=== PATIENT | female | born 1955 | race African-American/Black ===

== ENCOUNTER → 2017-02-15 | Outpatient (CLI) | payer BC ==
[2015-06-28 17:21] VITALS: BP 187/86
[~2017-02-15] MED LIST: LEVO100T; LISINOPRIL; NORVASC
--- NOTE | 2017-02-15 16:47 | RAD ---
DATE: 02/15/2017 EXAM: DIGITAL SCREEN BILAT W/CAD HISTORY: Asymptomatic screening mammogram. COMPARISON: Prior mammograms from 12/15/2015, 01/29/2014 and 09/19/2013 This study was interpreted with the benefit of Computerized Aided Detection (CAD). The breast parenchyma shows scattered fibroglandular densities. Breast parenchyma level B. FINDINGS: Bilateral CC and MLO views were performed. No suspicious microcalcifications, masses or areas of architectural distortion. Findings are stable from the prior mammogram. IMPRESSION: Negative bilateral mammogram BI-RADS CATEGORY: 1 NEGATIVE RECOMMENDED FOLLOW-UP: 12M 12 MONTH FOLLOW-UP PQRS compliance statement: Patient information was entered into a reminder system with a target due date 02/15/2018 for the next mammogram. Mammography is a sensitive method for finding small breast cancers, but it does not detect them all and is not a substitute for careful clinical examination. A negative mammogram does not negate a clinically suspicious finding and should not result in delay in biopsying a clinically suspicious abnormality. "Our facility is accredited by the [employer] Mammography [employer]."
== END | disposition home or self-care (01) ==
LOC: MAMMO 10:03
PROVIDERS: ATTEND Internal Medicine
DX: Z12.31 Encounter for screening mammogram for malignant neoplasm of breast (principal)
CPT/HCPCS: G0202; 77067

== ENCOUNTER → 2020-11-03 | Outpatient (CLI) | payer MEDICARE ==
[2015-06-28 17:21] VITALS: BP 187/86
[~2020-11-03] MED LIST changes: +LEVO-101; -LEVO100T; +REGADENOSON 0.4 MG/5 ML DISP.SYRIN. IV ONE
--- NOTE | 2020-11-03 12:47 | CARD ---
MR#: [id number] Date of Study: 11/03/2020 Ordering Physician: REED LATIF, Referring Physician: REED LATIF, Tech: Sue Baltazar [facility] APPROVED REPORT EXAM: Two-dimensional and M-mode echocardiogram with Doppler and color Doppler. Other Information Quality : Good INDICATION Murmur 2D DIMENSIONS RVDd2.8 (2.9-3.5cm)Left Atrium(2D)3.7 (1.6-4.0cm) IVSd1.3 (0.7-1.1cm)Aortic Root(2D)2.4 (2.0-3.7cm) LVDd4.7 (3.9-5.9cm)LVOT Diameter2.0 (1.8-2.4cm) PWd1.1 (0.7-1.1cm)LVDs2.6 (2.5-4.0cm) FS (%) 30.0 %SV78.4 ml LVEF(%)60.0 (>50%) Aortic Valve AoV Peak Alfredo.132.0cm/sAoV VTI33.9cm AO Peak GR.7.0mmHgLVOT Peak Alfredo.90.4cm/s LVOT VTI 23.06cmAO Mean GR.4mmHg JOSE F (VMAX)2.05qa3DMG (VTI)2.22cm2 Mitral Valve MV E Jmrryacq83.4cm/sMV DECEL YILD500eu MV A Egjokpox78.1cm/sMV DWF72uj E/A Ratio1.1MVA (PHT)3.76cm2 TDI E/Lateral E'9.1E/Medial E'11.4 Tricuspid Valve TR P. Rycpkhut052sj/sRAP TQZLGEYL8fhPv TR Peak Gr.22obVqXMJO73uvDw Pulmonary Vein S1 Opcabhke71.7cm/sD2 Xlyhnfzd38.1cm/s LEFT VENTRICLE The left ventricle is normal size. There is mild concentric left ventricular hypertrophy. The left ve ntricular systolic function is normal and the ejection fraction is within normal range. The Ejection Fraction is 55-60%. There is normal LV segmental wall motion. Transmitral Doppler flow pattern is Gra de I-abnormal relaxation pattern. RIGHT VENTRICLE The right ventricle is normal size. The right ventricular systolic function is normal. ATRIA The left atrium size is normal. The right atrium size is normal. The interatrial septum is intact wit h no evidence for an atrial septal defect or patent foramen ovale as noted on 2-D or Doppler imaging. AORTIC VALVE The aortic valve is calcified but opens well. Doppler and Color Flow revealed no significant aortic r egurgitation. There is no significant aortic valvular stenosis. MITRAL VALVE The mitral valve is calcified but opens well. There is no evidence of mitral valve prolapse. There is no mitral valve stenosis. Doppler and Color Flow revealed no mitral valve regurgitation noted. TRICUSPID VALVE The tricuspid valve is normal in structure and function. Doppler and Color Flow revealed trace tricus pid regurgitation. The PA pressure was estimated at 24 mmHg. There is no tricuspid valve stenosis. PULMONIC VALVE The pulmonic valve is not well visualized. Doppler and Color Flow revealed no pulmonic valvular regur gitation. There is no pulmonic valvular stenosis. GREAT VESSELS The aortic root is normal in size. The ascending aorta is normal in size. The IVC is normal in size a nd collapses >50% with inspiration. PERICARDIAL EFFUSION There is no evidence of significant pericardial effusion. Critical Notification Critical Value: No <Conclusion> The left ventricular systolic function is normal and the ejection fraction is within normal range. Th e Ejection Fraction is 55-60%. There is normal LV segmental wall motion. Signed by : Philip Mendenhall, Electronically Approved : 11/03/2020 12:46:44
--- NOTE | 2020-11-03 14:41 | RAD ---
MR#: [id number] Date of Study: 11/03/2020 Ordering Physician: REED LATIF, Referring Physician: DONTAE RAMIREZ Tech: RT Ayala (R) (N) APPROVED REPORT Test Type: Pharmacological Stress Nurse/Tech: SHAHRZAD DOYLE Test Indications: DYSPNEA ON EXERTION Cardiac History: HTN- SEE EMR Medications: SEE EMR Medical History: SEE EMR Resting ECG: SB/SA- PROLONGED QT Resting Heart Rate: 50 bpm Resting Blood Pressure: 148/70mmHg Pretest Chest Pain: No chest pain Nurse/Tech Notes S1,S2, LUNGS CTA, VSS, DENIED SOA OR CP. Consent: The procedure was explained to the patient in lay terms. Informed consent was witnessed. Jamey eout was entered into [employer]. History and Stress Test performed by RT Ayala (R) (N) Pharm. Details Pharmacologic stress testing was performed using 0.4mg per 5ml of regadenoson given intravenously ove r 7-10 seconds. Stress Symptoms PT C/O BRIEF SOA DURING INITIAL TESTING, RESOLVED QUICKLY, DENIED CHEST PAIN OR ANY OTHER SYMPTOMS. V SS. POST EXERCISE Reason for Termination: Infusion complete Max HR: 87 bpm Max Blood Pressure: 157/63mmHg Blood Pressure response to exercise: Normal blood pressure response during stress. Heart Rate response to exercise: NORMAL HEART RATE RESPONSE DURING STRESS Chest Pain: No. Arrhythmia: . SB/SA W/ PROLONGED QT INTERVAL NOTED ST Change: No. NO SIGNIFICANT CHANGES FROM BASELINE EKG NOTED INTERPRETATION Stress EKG Conclusion: No evidence of stress induced EKG changes. Imaging Protocol IMAGE PROTOCOL: Rest Tc-99m/stress Tc-99m 1 day Rest: Stress: Viability: Radiopharm.Tc99m IyorlfiinQj24m Sestamibi Dose10.7mCi 31mCi Duration 15min. 10min. Img Date 11/03/2020 11/03/2020 Inj-Img Eaky09odv. 60min. Rest Admin Site:IV - Right AntecubitalAdministrator:DIEGO Barrett, ARRT (R)(N) Stress Admin Site: IV - Right AntecubitalAdministrator: Hilario Vann, RT (R)(N) STRESS DATA End Diast. Vol.83.0mlAv. Heart Rate58.0bpm End Syst. Vol.23.0mlCO Index BSA0.0L/min Myocardial Kqjz607.0gEject. Iemoilwf40.0% Stress Rates Pk. Fill Rate1.98EDV/secLVtime Pk. Fill 161.70msec Pk. Empty Rate3.82ESV/secLVtime Pk. Dobnj061.72msec 08/07 Pk. Fill1.30EDV/sec Stress Scores Regional WT0.00Summed WT1.00 Regional WM0.00Summed WM0.00 The rest and stress images show normal perfusion, normal contraction and thickening. LV Perf. Quant 17 Seg. SSS1.00 17 Seg. SRS0.00 17 Seg. SDS1.00 Stress Defect Extent (% LAD)0.00Rest Defect Extent (% LAD)0.00Rev. Defect Extent (% LAD)0.00 Stress Defect Extent (% LCX) 0.00Rest Defect Extent (% LCX)0.00Rev. Defect Extent (% LCX)0.00 Stress Defect Extent (% RCA)0.00Rest Defect Extent (% RCA)0.00Rev. Defect Extent (% RCA)0.00 Stress Defect Extent (% LISA)0.00Rest Defect Extent (% LISA)0.00Rev. Defect Extent (% LISA)0.00 Other Information Quality:Good Risk Assessment: Low Risk Conclusion 1. No evidence of EKG changes with stress testing. 2. Normal perfusion at stress/rest. 3. Low risk study. 4. EF > 60%. Signed by : Philip Mendenhall, Electronically Approved : 11/03/2020 14:41:39
== END ==
LOC: ECHO 08:43
PROVIDERS: ATTEND Internal Medicine Cardiovascular Disease
DX: I08.0 Rheumatic disorders of both mitral and aortic valves (principal)
CPT/HCPCS: 78452; 93017; 93306; A9500; J2785

== ENCOUNTER → 2021-01-24 | Outpatient (CLI) | payer MEDICARE ==
[2015-06-28 17:21] VITALS: BP 187/86
[~2021-01-24] MED LIST changes: -REGADENOSON 0.4 MG/5 ML DISP.SYRIN. IV ONE
--- NOTE | 2021-01-24 16:59 | RAD ---
EXAM: BILATERAL DIGITAL 3D SCREENING MAMMOGRAPHY. HISTORY: Routine mammographic screening. TECHNIQUE: Bilateral digital 3D and tomographic images were obtained in CC and MLO projections. Compu ter-aided detection was applied. COMPARISON: 02/15/2017, 12/15/2015. COMPOSITION: B. There are scattered areas of fibroglandular density. FINDINGS: There are no suspicious masses, microcalcifications or architectural distortion. The parenc hymal pattern is stable. BI-RADS CATEGORY 1: Negative. RECOMMENDATION: 1. Routine screening mammography in one year. If mammography demonstrates dense breast tissue (heterogenously dense or extremely dense, category C or D), which could hide abnormalities, and if other risk factors for breast cancer have been identifi ed, supplemental screening tests that may be suggested by the ordering physician may be of benefit. D ense breast tissue, in and of itself, is a relatively common condition. Therefore, this information i s not provided to cause undue concern, but rather to raise awareness and to promote discussion with t he referring physician regarding the presence of other risk factors, in addition to dense breast tiss ue. The results of this mammography examination is provided to the patient and referring physician. T he patient should contact their referring physician if any questions or concerns exist regarding this report. PQRS compliance statement - Patient information was entered into a reminder system with a target due date for the next mammogram. "Our facility is accredited by the [employer] Mammography [employer]." Electronically signed by: Margot Ng MD (01/24/2021 4:56 PM) [id number]
== END ==
LOC: MAMMO 15:31
PROVIDERS: ATTEND Internal Medicine
DX: Z12.31 Encounter for screening mammogram for malignant neoplasm of breast (principal)
CPT/HCPCS: 77063; 77067